=== PATIENT | male | born 1940 | race African-American/Black ===

== ENCOUNTER 2018-02-27 21:06 | Inpatient (IN) | payer OTHER ==
[2018-02-28] MEDS ORDERED: ACETAMINOPHEN 325 MG TAB PO
[2018-02-28] MEDS ORDERED: BISACODYL (EC) 5 MG TAB PO
[2018-02-28] MEDS ORDERED: ONDANSETRON 4 MG INJ IV
[2018-02-28] MEDS ORDERED: NACL 0.9% 3 ML SYG IV
[2018-02-28] MEDS ORDERED: DOCUSATE SODIUM 100 MG CAP PO
[2018-02-28] MEDS ORDERED: CEPHALEXIN 500 MG CAP PO (00:30)
[2018-02-28 00:49] LABS: ADD MAN DIFF? NO
[2018-02-28 00:54] LABS: BASOPHILS % 0.5 % (0.0-2.0); EOSINOPHILS # 0.1 10^3/ul (0.0-0.5); EOSINOPHILS % 1.2 % (0.0-7.0); HEMATOCRIT 39.4 % (42.0-52.0); HEMOGLOBIN 13.4 g/dl (14.0-18.0); LYMPHOCYTES # 1.7 10^3/ul (0.8-2.9); LYMPHOCYTES % 21.9 % (15.0-51.0); MEAN CORPUSCULAR HEMOGLOBIN 32.8 pg (29.0-33.0); MEAN CORPUSCULAR VOLUME 96.3 fl (82.0-101.0); MEAN PLATELET VOLUME 9.4 fl (7.4-10.4); MONOCYTE # 0.8 10^3/ul (0.3-0.9); MONOCYTES % 10.8 % (0.0-11.0); NEUTROPHILS % 65.2 % (39.0-77.0); PLATELET COUNT 235 10^3/UL (140-415); RED BLOOD COUNT 4.09 10^6/ul (4.70-6.10); RED CELL DISTRIBUTION WIDTH 11.6 % (11.5-14.5)
[2018-02-28 00:54] LABS: WHITE BLOOD COUNT 7.6 10^3/ul (4.8-10.8)
[2018-02-28] MEDS: HEPARIN 5,000 UNIT/1 ML VIAL SC ×4 (01:14→22:30)
[2018-02-28 01:19] LABS: ALANINE AMINOTRANSFERASE 30 IU/L (13-69); ALBUMIN 3.7 g/dl (3.3-4.9); ALKALINE PHOSPHATASE 58 IU/L (42-121); ANION GAP 10 (5-13); ASPARTATE AMINO TRANSFERASE 35 IU/L (15-46); BILIRUBIN,INDIRECT 0.4 mg/dl (0-1.1); BILIRUBIN,TOTAL 0.4 mg/dl (0.2-1.3); BLOOD UREA NITROGEN 16 mg/dl (7-20); CALCIUM 9.2 mg/dl (8.4-10.2); CARBON DIOXIDE 27 mmol/L (21-31); CHLORIDE 101 mmol/L (97-110); CHOL/HDL RATIO 3.2 RATIO; CHOLESTEROL 167 mg/dl (100-200); CREATININE 0.79 mg/dl (0.61-1.24); GLUCOSE 139 mg/dl (70-220); HDL CHOLESTEROL 51 mg/dl (31-75); LDL CHOLESTEROL,CALCULATED 96 mg/dl; SODIUM 138 mmol/L (135-144); TOTAL PROTEIN 7.4 g/dl (6.1-8.1); TRIGLYCERIDES 98 mg/dl (0-149)
[2018-02-28 01:48] LABS: THYROID STIMULATING HORMONE 0.297 MIU/L (0.465-4.680)
[2018-02-28] MEDS: CEPHALEXIN 500 MG CAP PO ×3 (02:50→11:57)
[2018-02-28] MEDS: HALOPERIDOL 5 MG INJ IM (04:19)
[2018-02-28 06:51] LABS: HEMOGLOBIN A1C 6.3 % (0-5.9)
[2018-02-28] MEDS: ASPIRIN 81 MG TAB PO (15:14)
[2018-02-28] MEDS: QUETIAPINE 25 MG TAB PO ×2 (15:14→22:30)
[2018-02-28] MEDS: ATORVASTATIN 40 MG TAB PO (20:17)
[2018-03-01] MEDS: HEPARIN 5,000 UNIT/1 ML VIAL SC ×3 (06:24→21:30)
[2018-03-01] MEDS: QUETIAPINE 25 MG TAB PO ×2 (10:08→20:37)
[2018-03-01] MEDS: ASPIRIN 81 MG TAB PO (10:08)
[2018-03-01] MEDS: ATORVASTATIN 40 MG TAB PO (20:37)
[2018-03-02] MEDS: HEPARIN 5,000 UNIT/1 ML VIAL SC ×3 (05:33→21:03)
[2018-03-02] MEDS: QUETIAPINE 25 MG TAB PO ×2 (08:48→21:01)
[2018-03-02] MEDS: ASPIRIN 81 MG TAB PO (08:48)
[2018-03-02] MEDS: ATORVASTATIN 40 MG TAB PO (21:01)
[2018-03-03] MEDS: HEPARIN 5,000 UNIT/1 ML VIAL SC ×2 (05:45→14:49)
[2018-03-03] MEDS: ASPIRIN 81 MG TAB PO (09:13)
[2018-03-03] MEDS: QUETIAPINE 25 MG TAB PO ×2 (09:13→20:07)
[2018-03-03] MEDS: ATORVASTATIN 40 MG TAB PO (20:07)
[2018-03-04] MEDS: ASPIRIN 81 MG TAB PO (08:12)
[2018-03-04] MEDS: QUETIAPINE 25 MG TAB PO ×2 (08:12→21:01)
[2018-03-04] MEDS: ENOXAPARIN 40 MG/0.4 ML SYG SC (08:14)
[2018-03-04] MEDS: ATORVASTATIN 40 MG TAB PO (21:01)
[2018-03-05] MEDS: ASPIRIN 81 MG TAB PO (08:53)
[2018-03-05] MEDS: QUETIAPINE 25 MG TAB PO (08:53)
[2018-03-05] MEDS: ENOXAPARIN 40 MG/0.4 ML SYG SC (08:58)
== END 2018-03-05 17:49 | disposition other institution (70) | DRG 884 ==
LOC: 5EC 03-01 06:57 → PP2 21:06
PROVIDERS: Internal Medicine
DX: F01.50 Vascular dementia, unspecified severity, without behavioral disturbance, psychotic disturbance, mood disturbance, and anxiety (principal); L03.115 Cellulitis of right lower limb; I12.9 Hypertensive chronic kidney disease with stage 1 through stage 4 chronic kidney disease, or unspecified chronic kidney disease; N18.3 Chronic kidney disease, stage 3 (moderate); N40.0 Benign prostatic hyperplasia without lower urinary tract symptoms; E78.5 Hyperlipidemia, unspecified
CPT/HCPCS: 80053; 80061; 83036; 83735; 84443; 85025; 87081; 90686; 97110; 97116; 97162; 97166; 97530

== ENCOUNTER 2018-08-11 23:59 | Inpatient (IN) | payer OTHER ==
[2018-08-12] MEDS ORDERED: DOCUSATE SODIUM 100 MG CAP PO (01:00)
[2018-08-12] MEDS ORDERED: BISACODYL (EC) 5 MG TAB PO (01:00)
[2018-08-12] MEDS ORDERED: LORAZEPAM 2 MG INJ (01:02)
[2018-08-12] MEDS: HALOPERIDOL 5 MG INJ IM (01:12)
[2018-08-12] MEDS: LORAZEPAM 2 MG INJ IV (01:12)
[2018-08-12] MEDS: SOD CHLORIDE 0.9% 1,000 ML IV (01:12)
[2018-08-12] MEDS: LEVETIRACETAM 250 MG TAB PO ×2 (09:41→20:10)
[2018-08-12] MEDS: QUETIAPINE 25 MG TAB PO (09:41)
[2018-08-12 10:22] LABS: ADD MAN DIFF? NO
[2018-08-12 10:23] LABS: WHITE BLOOD COUNT 6.3 10^3/ul (4.8-10.8)
[2018-08-12 10:23] LABS: BASOPHILS % 0.5 % (0.0-2.0); EOSINOPHILS # 0.1 10^3/ul (0.0-0.5); EOSINOPHILS % 2.1 % (0.0-7.0); HEMOGLOBIN 15.1 g/dl (14.0-18.0); LYMPHOCYTES # 1.9 10^3/ul (0.8-2.9); LYMPHOCYTES % 29.7 % (15.0-51.0); MEAN CORPUSCULAR HGB CONC 34.3 g/dl (32.0-37.0); MEAN CORPUSCULAR VOLUME 93.2 fl (82.0-101.0); MEAN PLATELET VOLUME 9.5 fl (7.4-10.4); MONOCYTE # 0.8 10^3/ul (0.3-0.9); MONOCYTES % 12.9 % (0.0-11.0); NEUTROPHIL # 3.4 10^3/ul (1.6-7.5); NEUTROPHILS % 54.3 % (39.0-77.0); PLATELET COUNT 232 10^3/UL (140-415); RED BLOOD COUNT 4.72 10^6/ul (4.70-6.10); RED CELL DISTRIBUTION WIDTH 12.2 % (11.5-14.5)
[2018-08-12 10:41] LABS: INR 0.99; PROTIME 13.2 Sec (11.9-14.9)
[2018-08-12 10:42] LABS: PARTIAL THROMBOPLASTIN TIME 28.6 Sec (23.0-35.0)
[2018-08-12 10:46] LABS: ALANINE AMINOTRANSFERASE 23 IU/L (13-69); ALBUMIN 4.1 g/dl (3.3-4.9); ALBUMIN/GLOBULIN RATIO 1.05; ALKALINE PHOSPHATASE 62 IU/L (42-121); ANION GAP 7 (5-13); ASPARTATE AMINO TRANSFERASE 42 IU/L (15-46); BILIRUBIN,INDIRECT 0.8 mg/dl (0-1.1); BILIRUBIN,TOTAL 0.8 mg/dl (0.2-1.3); BLOOD UREA NITROGEN 14 mg/dl (7-20); CALCIUM 9.4 mg/dl (8.4-10.2); CARBON DIOXIDE 29 mmol/L (21-31); CHLORIDE 105 mmol/L (97-110); CREATININE 0.94 mg/dl (0.61-1.24); GLUCOSE 115 mg/dl (70-220); MAGNESIUM 2.1 mg/dl (1.7-2.5); POTASSIUM 4.5 mmol/L (3.5-5.1); SODIUM 141 mmol/L (135-144)
[2018-08-12] MEDS ORDERED: HALOPERIDOL 5 MG INJ IM (20:30)
[2018-08-13 07:27] LABS: HEMOGLOBIN A1C 5.6 % (0-5.9)
[2018-08-13 07:33] LABS: CHOL/HDL RATIO 2.9 RATIO; CHOLESTEROL 160 mg/dl (100-200); HDL CHOLESTEROL 54 mg/dl (31-75); LDL CHOLESTEROL,CALCULATED 88 mg/dl; TRIGLYCERIDES 92 mg/dl (0-149)
[2018-08-13 07:33] LABS: MAGNESIUM 1.9 mg/dl (1.7-2.5)
[2018-08-13 07:56] LABS: THYROID STIMULATING HORMONE 0.478 MIU/L (0.465-4.680)
[2018-08-13] MEDS: LEVETIRACETAM 250 MG TAB PO ×2 (08:35→22:25)
[2018-08-14] MEDS: LEVETIRACETAM 250 MG TAB PO (08:38)
[2018-08-14] MEDS: ACETAMINOPHEN 325 MG TAB PO (13:10)
[2018-08-14] MEDS: QUETIAPINE 25 MG TAB PO ×2 (16:02→21:25)
[2018-08-15] MEDS: QUETIAPINE 25 MG TAB PO ×2 (08:58→20:05)
[2018-08-16] MEDS: QUETIAPINE 25 MG TAB PO ×2 (09:10→20:01)
[2018-08-16] MEDS: NACL 0.9% 3 ML SYG IV (09:11)
[2018-08-16] MEDS: hydrALAzine 20 MG INJ IV (09:11)
[2018-08-17] MEDS: QUETIAPINE 25 MG TAB PO ×2 (08:12→20:08)
[2018-08-18] MEDS: QUETIAPINE 25 MG TAB PO ×2 (09:28→20:16)
[2018-08-19] MEDS: QUETIAPINE 25 MG TAB PO ×2 (09:03→21:00)
[2018-08-20] MEDS: QUETIAPINE 25 MG TAB PO ×2 (08:59→21:09)
[2018-08-21] MEDS: QUETIAPINE 25 MG TAB PO ×2 (09:10→21:00)
[2018-08-22] MEDS: QUETIAPINE 25 MG TAB PO (08:42)
== END 2018-08-22 11:40 | disposition left against medical advice (07) | DRG 87 ==
LOC: TEL 08-12 00:01 → 2NE 08-14 01:13 → 5EC 08-15 18:55 → TEL 23:59
DX: S06.5X0A Traumatic subdural hemorrhage without loss of consciousness, initial encounter (principal); F03.90 Unspecified dementia, unspecified severity, without behavioral disturbance, psychotic disturbance, mood disturbance, and anxiety; I69.398 Other sequelae of cerebral infarction; H49.20 Sixth [abducent] nerve palsy, unspecified eye; H49.00 Third [oculomotor] nerve palsy, unspecified eye; I12.9 Hypertensive chronic kidney disease with stage 1 through stage 4 chronic kidney disease, or unspecified chronic kidney disease; N18.2 Chronic kidney disease, stage 2 (mild); E78.5 Hyperlipidemia, unspecified; N40.0 Benign prostatic hyperplasia without lower urinary tract symptoms; Z87.440 Personal history of urinary (tract) infections; R29.6 Repeated falls; W19.XXXA Unspecified fall, initial encounter
CPT/HCPCS: 70450; 80053; 80061; 83036; 83735; 84443; 85025; 85610; 85730; 87081; 97110; 97116; 97162; 97530